=== PATIENT | female | born 1985 | race African-American/Black ===

== ENCOUNTER 2017-03-16 10:19 | Emergency (ER) | payer OTHER ==
[~2017-03-16] VITALS: Ht 154.9 cm; Wt 59.9 kg
[2017-03-16] MEDS ORDERED: [UNRECOGNIZED DRUG - OTHER] TD (10:29)
[2017-03-16] MEDS ORDERED: ZYRT10TA2 PO (10:29)
[2017-03-16] MEDS ORDERED: KETOROLAC 30 MG/ML VIAL (J1885) IV ONE (11:00)
[2017-03-16] MEDS ORDERED: ONDANSETRON 4MG/2ML VIAL (J2405) IV ONE (11:00)
[2017-03-16] MEDS ORDERED: NS 1,000 ML IV ONE (11:00)
[2017-03-16 11:39] LABS: BASO % 0.3 % (0.0-1.0); EOS # 0.2 K/mm3 (0.0-0.50); EOS % 2.5 % (0.0-3.0); LARGE UNSTAINED CELL # 0.1 K/mm3 (0.0-0.4); LYMPH # 1.5 K/mm3 (1.5-4.5); LYMPH % 19.6 % (24.0-44.0); MEAN CORPUSCULAR HEMOGLOBIN 24.8 pg (27.0-33.0); MEAN CORPUSCULAR HGB CONC 31.5 g/dl (32.0-36.5); MEAN CORPUSCULAR VOLUME 78.6 fl (80.0-96.0); MONO # 0.2 K/mm3 (0.0-0.8); MONO % 2.8 % (0.0-5.0); NEUTROPHILS # 5.8 K/mm3 (1.8-7.7); NEUTROPHILS % 73.8 % (36.0-66.0); PLATELET COUNT, AUTOMATED 401 k/mm3 (150-450); RED CELL DISTRIBUTION WIDTH 14.6 % (11.5-14.5); WHITE BLOOD COUNT 7.8 K/mm3 (4.0-10.0)
[2017-03-16 12:05] LABS: CONTROL LINE HCG INT CTR LINE PRESENT
[2017-03-16 12:13] LABS: ALBUMIN 3.4 GM/DL (3.2-5.2); ALBUMIN/GLOBULIN RATIO 0.77 (1.00-1.93); ALKALINE PHOSPHATASE 75 U/L (45-117); ALT/SGPT 13 U/L (12-78); ANION GAP 6 MEQ/L (8-16); AST/SGOT 10 U/L (15-37); BILIRUBIN,DIRECT < 0.1 MG/DL (0.0-0.2); BILIRUBIN,TOTAL 0.3 MG/DL (0.2-1.0); BLOOD UREA NITROGEN 6 MG/DL (7-18); CALCIUM LEVEL 8.9 MG/DL (8.5-10.1); CARBON DIOXIDE LEVEL 27 MEQ/L (21-32); CHLORIDE LEVEL 105 MEQ/L (98-107); CREATININE FOR GFR 0.67 MG/DL (0.55-1.02); GLOMERULAR FILTRATION RATE > 60.0 (>60); GLUCOSE, FASTING 89 MG/DL (70-105); POTASSIUM SERUM 3.5 MEQ/L (3.5-5.1); SODIUM LEVEL 138 MEQ/L (136-145); TOTAL PROTEIN 7.8 GM/DL (6.4-8.2)
--- NOTE | 2017-03-16 13:39 | REP ---
CT ABDOMEN AND PELVIS WITHOUT CONTRAST: CT abdomen and pelvis performed without IV contrast. Sagittal and coronal reconstruction images are performed. In the visualized lung bases, there is an ill-defined, somewhat nodular opacity in the right middle lobe measuring 4 mm in diameter. This is of doubtful significance. Liver, gallbladder, spleen, adrenals, pancreas and kidneys are grossly unremarkable. N renal or ureteral calculus is seen and I see no evidence of hydroureteronephrosis. There is no evidence of abdominal aortic aneurysm. There is no adenopathy. There is no free air or free fluid. The uterus appears enlarged with a lobular contour suggesting fibroid changes. In the right adnexal region, superiorly is an oval structure measuring approximately 5.7 x 3.5 cm. This may represent an enlarged ovary but underlying adnexal mass cannot be excluded. The urinary bladder is grossly unremarkable. IMPRESSION: There is a 4 mm ill-defined nodular opacity in the right middle lobe, which is of uncertain significance. Recommend followup CT in six months. No evidence of renal or ureteral calculus and no hydroureteronephrosis. No evidence of appendicitis. Enlarged uterus with somewhat lobulated contour suggesting fibroid changes. Right adnexal structure measuring 5.7 x 3.5 cm may represent an enlarged ovary but underlying right adnexal mass cannot be excluded. Recommend pelvic ultrasound to further evaluate. Signed by Edward Degroot MD 03/18/2017 06:57 P
[2017-03-16] MEDS ORDERED: IBUP80TA PO (14:49)
[2017-03-16] MEDS ORDERED: ULTR50TA PO (14:49)
--- NOTE | 2017-03-16 14:58 | REP ---
PELVIC ULTRASOUND: Real-time sonographic evaluation of the pelvis is performed utilizing transabdominal and endovaginal technique. The bladder measures 8.0 x 5.1 x 4.7 cm. The uterus measures 14.4 x 5.6 x 8.9 cm. It is enlarged and heterogeneous with multiple fibroids. Two large pedunculated fibroids in the right fundal region are seen, measuring 3.9 x 3.0 x 2.8 cm and 2.1 x 2.0 x 2.3 cm. Another large fibroid is seen posteriorly in the uterine body measuring 5.5 x 4.1 x 4.2 cm. The endometrium measures 5 mm with no endometrial fluid collection. The ovaries appear normal in size and echotexture, right ovary measuring 2.8 x 1.6 x 2.2 cm and the left ovary 1.7 x 1.4 x 2.0 cm. There is no adnexal mass or free fluid. IMPRESSION: Enlarged fibroid uterus. Normal ovaries with no evidence of mass or torsion. The suspected right adnexal mass on today's CT scan represents a uterine fibroid. Signed by Edward Degroot MD 03/18/2017 06:58 P
[2017-03-16 15:02] VITALS: BP 125/71
--- NOTE | 2017-03-21 15:13 | ED PDOC ---
Post-Departure Follow-Up lisbet celaya faxed formal report of ct abd/p for fu Calli Hardy MD Mar 21, 2017 15:13
== END 2017-03-16 15:18 | disposition home or self-care (01) ==
LOC: M ED 11:07
DX: D25.9 Leiomyoma of uterus, unspecified (principal); Z87.442 Personal history of urinary calculi; Z79.899 Other long term (current) drug therapy
CPT/HCPCS: 74176; 76856; 80048; 80076; 81001; 81025; 83690; 84703; 85025; 87086; 87210; 87491; 87591; 93976; 96374; 96375; 99284; J1885; J2405

== ENCOUNTER 2017-09-17 10:21 | Emergency (ER) | payer OTHER ==
[~2017-09-17] VITALS: Ht 152.4 cm; Wt 59.5 kg
[~2017-09-17 10:21] MED LIST: IBUP80TA PO; ULTR50TA8 PO; ZYRT10TA2 PO; [UNRECOGNIZED DRUG - OTHER] TD
[2017-09-17 10:22] VITALS: BP 140/88
[2017-09-17] MEDS ORDERED: IBUP200C10 PO (10:36)
[2017-09-17] MEDS ORDERED: KEFL500C17 PO (11:10)
[2017-09-17] MEDS ORDERED: NORCOTAB PO ×2 (11:10→11:17)
== END 2017-09-17 11:21 | disposition home or self-care (01) ==
LOC: M ED 10:21
DX: L03.114 Cellulitis of left upper limb (principal); J45.909 Unspecified asthma, uncomplicated; Z79.899 Other long term (current) drug therapy; Z79.3 Long term (current) use of hormonal contraceptives; Z88.8 Allergy status to other drugs, medicaments and biological substances

== ENCOUNTER 2018-03-01 17:59 | Emergency (ER) | payer OTHER | END 2018-03-01 19:23 | disposition home or self-care (01) | LOC: M ED 17:59 | DX: J01.90 Acute sinusitis, unspecified (principal); F32.9 Major depressive disorder, single episode, unspecified; Z79.3 Long term (current) use of hormonal contraceptives; Z79.899 Other long term (current) drug therapy; Z88.8 Allergy status to other drugs, medicaments and biological substances | CPT/HCPCS: 71046 ==

== ENCOUNTER 2019-01-06 07:51 | Emergency (ER) | payer OTHER ==
[~2019-01-06] VITALS: Ht 152.4 cm; Wt 61.4 kg
[~2019-01-06 07:51] MED LIST changes: +AUGM875T28 PO; +HYDR-3715 PO; +IBUP200C25 PO; +KEFL500C17 PO; +ZYRT10CA5 PO; -ZYRT10TA2 PO
[2019-01-06] MEDS ORDERED: CENTCHW4 PO (07:55)
[2019-01-06] MEDS ORDERED: NS 1,000 ML IV ONE (08:30)
[2019-01-06] MEDS ORDERED: KETOROLAC 30 MG/ML VIAL (J1885) IV ONE (08:30)
[2019-01-06 08:56] LABS: BASO % 0.5 % (0.0-1.0); EOS # 0.1 10^3/uL (0.0-0.50); EOS % 1.9 % (0.0-3.0); HEMATOCRIT 42.3 % (36.0-47.0); HEMOGLOBIN 13.5 g/dl (12.0-15.5); LYMPH # 1.9 10^3/uL (1.5-4.5); LYMPH % 29.8 % (24.0-44.0); MEAN CORPUSCULAR HEMOGLOBIN 24.5 pg (27.0-33.0); MEAN CORPUSCULAR HGB CONC 31.9 g/dl (32.0-36.5); MEAN CORPUSCULAR VOLUME 76.9 fl (80.0-96.0); MONO # 0.3 10^3/uL (0.0-0.8); MONO % 5.4 % (0.0-5.0); NEUTROPHILS % 62.2 % (36.0-66.0); PLATELET COUNT, AUTOMATED 414 10^3/uL (150-450); WHITE BLOOD COUNT 6.4 10^3/uL (4.0-10.0)
[2019-01-06 09:25] LABS: HCG, SERUM QUALITATIVE NEGATIVE (NEGATIVE)
[2019-01-06 09:26] LABS: BLOOD UREA NITROGEN 11 MG/DL (7-18); CALCIUM LEVEL 9.2 MG/DL (8.5-10.1); CARBON DIOXIDE LEVEL 27 MEQ/L (21-32); CHLORIDE LEVEL 104 MEQ/L (98-107); CREATININE FOR GFR 0.79 MG/DL (0.55-1.30); GLOMERULAR FILTRATION RATE > 60.0 (>60); GLUCOSE, FASTING 86 MG/DL (70-100); POTASSIUM SERUM 4.2 MEQ/L (3.5-5.1); SODIUM LEVEL 138 MEQ/L (136-145)
--- NOTE | 2019-01-06 10:12 | REP ---
PELVIC SONOGRAPHY: HISTORY: Pelvic discomfort. History of ovarian cysts. FINDINGS: Transabdominal and transvaginal scanning are performed. Uterine dimensions are quite enlarged at 12.0 x 6.2 x 10.0 cm. Endometrial echo is 0.5 cm thick. Uterine texture is heterogeneous with numerous fibroids. Among the largest fibroids is a pedunculated subserosal fibroid on the right side measuring 8.2 x 4.6 x 6.5 cm. At the fundus there is a 3.7 x 2.5 x 3.9 cm fibroid and on the right posteriorly there is a 4.2 x 4.0 x 3.6 cm intramural fibroid. A trace of fluid is seen in the cul-de-sac consistent with physiologic fluid. Normal ovaries are seen. Right ovary measures 3.5 x 1.9 x 2.7 cm. Left ovarian dimensions are 3.1 x 1.9 x 2.8 cm. Doppler flow is seen in both ovaries. Resistive indices are 0.44 on the left and 0.58 on the right. IMPRESSION: Moderate to marked uterine enlargement with numerous fibroids ranging up to 8.2 cm in diameter. Normal ovaries bilaterally. Electronically Signed by Rashard Ponce MD 01/06/2019 01:59 P
[2019-01-06 10:22] VITALS: BP 155/90
[2019-01-06 10:45] LABS: CHLAMYDIA DNA AMPLIFICATION NEGATIVE (NEGATIVE); GC DNA AMPLIFICATION NEGATIVE (NEGATIVE)
== END 2019-01-06 10:25 | disposition home or self-care (01) ==
LOC: M ED 07:51
DX: D25.9 Leiomyoma of uterus, unspecified (principal); J45.909 Unspecified asthma, uncomplicated; F32.9 Major depressive disorder, single episode, unspecified; Z79.899 Other long term (current) drug therapy; Z88.8 Allergy status to other drugs, medicaments and biological substances
CPT/HCPCS: 76830; 76856; 80048; 81001; 84703; 85025; 87210; 87491; 87591; 93976; 96361; 96374; 99284; J1885

== ENCOUNTER 2019-01-10 20:06 | Emergency (ER) | payer OTHER ==
[~2019-01-10] VITALS: Ht 152.4 cm; Wt 61.4 kg
[~2019-01-10 20:06] MED LIST changes: +CENTCHW4 PO
[2019-01-10 23:14] LABS: BASO % 0.2 % (0.0-1.0); EOS # 0.1 10^3/uL (0.0-0.50); EOS % 1.1 % (0.0-3.0); HEMATOCRIT 38.5 % (36.0-47.0); HEMOGLOBIN 12.5 g/dl (12.0-15.5); LYMPH # 1.9 10^3/uL (1.5-4.5); LYMPH % 21.7 % (24.0-44.0); MEAN CORPUSCULAR HEMOGLOBIN 24.2 pg (27.0-33.0); MEAN CORPUSCULAR HGB CONC 32.5 g/dl (32.0-36.5); MEAN CORPUSCULAR VOLUME 74.6 fl (80.0-96.0); MONO # 0.8 10^3/uL (0.0-0.8); MONO % 9.3 % (0.0-5.0); NEUTROPHILS # 5.9 10^3/uL (1.8-7.7); NEUTROPHILS % 67.4 % (36.0-66.0); PLATELET COUNT, AUTOMATED 377 10^3/uL (150-450); RED BLOOD COUNT 5.16 10^6/uL (4.00-5.40); WHITE BLOOD COUNT 8.7 10^3/uL (4.0-10.0)
[2019-01-10] MEDS ORDERED: NORCO, ANEXSIA 5/325MG TABLET (HYDROcodone/ACETAMINOPHEN) PO ONE (23:15)
[2019-01-10 23:29] LABS: BLOOD UREA NITROGEN 12 MG/DL (7-18); CALCIUM LEVEL 8.8 MG/DL (8.5-10.1); CARBON DIOXIDE LEVEL 24 MEQ/L (21-32); CHLORIDE LEVEL 106 MEQ/L (98-107); CREATININE FOR GFR 0.65 MG/DL (0.55-1.30); GLOMERULAR FILTRATION RATE > 60.0 (>60); GLUCOSE, FASTING 107 MG/DL (70-100); POTASSIUM SERUM 3.6 MEQ/L (3.5-5.1); SODIUM LEVEL 139 MEQ/L (136-145)
[2019-01-11] MEDS ORDERED: NORCO 5/325MG TABLET (BULK FOR ED) PO ONE (01:30)
[2019-01-11 01:36] VITALS: BP 121/76
== END 2019-01-11 01:38 | disposition home or self-care (01) ==
LOC: M ED 20:06
DX: D25.1 Intramural leiomyoma of uterus (principal); D25.2 Subserosal leiomyoma of uterus; J45.909 Unspecified asthma, uncomplicated; Z79.3 Long term (current) use of hormonal contraceptives; Z88.8 Allergy status to other drugs, medicaments and biological substances

== ENCOUNTER 2019-04-05 05:44 | Inpatient (IN) | payer OTHER ==
[2019-04-05] VITALS (9 sets, daily range): BP systolic 115–143; BP diastolic 64–78
[~2019-04-05] VITALS: Ht 154.9 cm; Wt 59.9 kg
[~2019-04-05 05:44] MED LIST changes: +ADV250INH INH; +DEPO150I IM; +PROAAER10 INH; +TRAM50TA2 PO
[2019-04-05] MEDS ORDERED: LIDOCAINE 1% MDV 20ML VIAL SQ PRN (06:00)
[2019-04-05] MEDS: LR 1,000 ML IV SCH ×2 (06:00→17:06)
[2019-04-05 06:19] LABS: HEMATOCRIT 39.6 % (36.0-47.0); HEMOGLOBIN 12.9 g/dl (12.0-15.5); MEAN CORPUSCULAR HEMOGLOBIN 25.1 pg (27.0-33.0); MEAN CORPUSCULAR HGB CONC 32.6 g/dl (32.0-36.5); PLATELET COUNT, AUTOMATED 396 10^3/uL (150-450); RED BLOOD COUNT 5.14 10^6/uL (4.00-5.40); WHITE BLOOD COUNT 7.1 10^3/uL (4.0-10.0)
[2019-04-05 06:42] LABS: BLOOD UREA NITROGEN 9 MG/DL (7-18); CALCIUM LEVEL 8.9 MG/DL (8.5-10.1); CARBON DIOXIDE LEVEL 25 MEQ/L (21-32); CHLORIDE LEVEL 109 MEQ/L (98-107); CREATININE FOR GFR 0.91 MG/DL (0.55-1.30); GLOMERULAR FILTRATION RATE > 60.0 (>60); GLUCOSE, FASTING 99 MG/DL (70-100); SODIUM LEVEL 141 MEQ/L (136-145)
[2019-04-05 06:44] LABS: HCG, SERUM QUALITATIVE NEGATIVE (NEGATIVE)
[2019-04-05] MEDS ORDERED: LR 1,000 ML IV ONE (07:00)
[2019-04-05] MEDS ORDERED: IODINE STRONG SOLN 15 ML BTL As Ordered ONE (07:14)
[2019-04-05] MEDS ORDERED: LIDOCAINE W/EPINEPHRINE 1% 20ML VIAL As Ordered ONE (07:14)
[2019-04-05] MEDS ORDERED: VASOPRESSIN INJ 20 UNITS/ML VIAL As Ordered ONE (07:20)
[2019-04-05] MEDS ORDERED: ONDANSETRON 4MG/2ML VIAL (J2405) As Ordered ONE (08:09)
[2019-04-05] MEDS ORDERED: LIDOCAINE 2% INJ 100 MG/5 ML SDV (FOR ANES.) As Ordered ONE (08:09)
[2019-04-05] MEDS ORDERED: KETOROLAC 60 MG/2 ML VIAL (J1885) As Ordered ONE (08:09)
[2019-04-05] MEDS ORDERED: fentaNYL 250 MCG/5 ML INJECTION (J3010) As Ordered ONE (08:09)
[2019-04-05] MEDS ORDERED: GLYCOPYRROLATE INJ 0.2 MG/ML 2 ML VIAL As Ordered ONE (08:09)
[2019-04-05] MEDS ORDERED: PROPOFOL 200 MG/20 ML VIAL As Ordered ONE (08:09)
[2019-04-05] MEDS ORDERED: dexameTHASONE 4 MG/ML 1ML VIAL (J1100) As Ordered ONE (08:09)
[2019-04-05] MEDS ORDERED: ACETAMINOPHEN 1000MG 100ML IV BTL (OFIRMEV) (J0131 PER 10MG) As Ordered ONE (08:09)
[2019-04-05] MEDS ORDERED: MIDAZOLAM INJ 2 MG/2 ML VIAL (J2250) As Ordered ONE (08:09)
[2019-04-05] MEDS ORDERED: ROCURONIUM BROMIDE 50 MG/5 ML VIAL As Ordered ONE (08:09)
[2019-04-05] MEDS ORDERED: SUGAMMADEX SODIUM 500 MG/5 ML VIAL (BRIDION) As Ordered ONE (08:09)
[2019-04-05] MEDS ORDERED: HYDROmorphone HCL 2 MG/ML 1ML VIAL (J1170) As Ordered ONE (08:09)
[2019-04-05] MEDS ORDERED: PHENYLephrine HCL 500 MCG/5 ML (100MCG/ML) SYRINGE (J2370) As Ordered ONE (08:12)
[2019-04-05] MEDS ORDERED: PERCOCET 5MG/325MG TAB PO PRN ×3 (09:45→10:30)
[2019-04-05] MEDS ORDERED: PROMETHAZINE INJ 25 MG/ML VIAL (J2550) IV PRN (09:45)
[2019-04-05] MEDS ORDERED: MORPHINE 4 MG/ML 1ML VIAL/SYRINGE (J2270) IV PRN (09:45)
[2019-04-05] MEDS ORDERED: fentaNYL 100 MCG/2 ML INJECTION (J3010) As Ordered ONE (10:08)
[2019-04-05] MEDS: fentaNYL 100 MCG/2 ML INJECTION (J3010) IV PRN ×4 (10:10→10:25)
[2019-04-05] MEDS ORDERED: METOCLOPRAMIDE INJ 10MG/2ML VIAL (J2765) IV PRN (10:30)
[2019-04-05] MEDS ORDERED: LR 1,000 ML IV SCH (10:30)
[2019-04-05] MEDS ORDERED: HYDROMORPHONE HCL 0.5 MG/ 0.5 ML SYRINGE (J1170 PER 1) IV PRN (10:30)
[2019-04-05] MEDS ORDERED: ONDANSETRON 4MG/2ML VIAL (J2405) IV PRN (10:30)
[2019-04-05] MEDS: DOCUSATE SODIUM 100 MG CAP PO SCH ×2 (14:32→20:29)
[2019-04-05] MEDS: KETOROLAC 30 MG/ML VIAL (J1885) IV SCH ×2 (14:34→20:29)
[2019-04-06] VITALS: BP 111/62
[2019-04-06] MEDS: KETOROLAC 30 MG/ML VIAL (J1885) IV SCH ×3 (02:08→13:53)
[2019-04-06 04:00] VITALS: BP 115/60
[2019-04-06 07:49] LABS: HEMATOCRIT 36.1 % (36.0-47.0); HEMOGLOBIN 11.2 g/dl (12.0-15.5); MEAN CORPUSCULAR HEMOGLOBIN 25.7 pg (27.0-33.0); MEAN CORPUSCULAR VOLUME 82.8 fl (80.0-96.0); PLATELET COUNT, AUTOMATED 236 10^3/uL (150-450); RED BLOOD COUNT 4.36 10^6/uL (4.00-5.40); WHITE BLOOD COUNT 11.1 10^3/uL (4.0-10.0)
[2019-04-06 08:00] VITALS: BP 116/67
[2019-04-06 08:04] LABS: BLOOD UREA NITROGEN 8 MG/DL (7-18); CALCIUM LEVEL 8.7 MG/DL (8.5-10.1); CARBON DIOXIDE LEVEL 23 MEQ/L (21-32); CHLORIDE LEVEL 110 MEQ/L (98-107); CREATININE FOR GFR 0.76 MG/DL (0.55-1.30); GLOMERULAR FILTRATION RATE > 60.0 (>60); GLUCOSE, FASTING 86 MG/DL (70-100); POTASSIUM SERUM 3.7 MEQ/L (3.5-5.1); SODIUM LEVEL 142 MEQ/L (136-145)
--- NOTE | 2019-04-06 08:06 | IPNPDOC ---
Text Note Date of Service The patient was seen on 04/06/19. NOTE 34 yo G0 POD#1 s/p uncomplicated open abdominal myomectomy and LEEP yesterday for symptomatic fibroid uterus and cervical dysplasia. EBL from surgery 50ml. Patient currently recovering on the Peds floor. No acute events overnight. Alcira reports feeling well. She's still sore but improved from yesterday. She has been ambulating. Mcadams catheter removed this morning and we are awaiting DTV. She is tolerating a regular diet and denies any n/v, fevers/chills, SOB, chest pain, dysuria, or pain not controlled by PO pain medications. Vitals - VSS, afebrile, normotensive, nontachycardic General - AAOX3, sitting up in bed, NAD Abdomen - Soft, nondistended. Bandage removed and incision clean/dry/intact. Steri strips in place. Minimal tenderness to palpation. Extremities - No edema. UO - Excellent Labs: Pre op CBC: 7.1>12.9/39.6<396 --> CBC post op this AM 11.1>11.2/36.1<236 Pending post op BMP Ms. Alegre is doing well and is making an appropriate postoperative recovery. Will monitor for DTV today now that mcadams catheter out. Continue to encourage ambulation and IS use. Continue routine postoperative care. Anticipate dc home later today or tomorrow morning. Shailesh Fernandes DO VS,Robb, I+O VS, Robertbone, I+O Laboratory Tests 04/06/19 07:25 Red Blood Count 4.36, Mean Corpuscular Volume 82.8, Mean Corpuscular Hemoglobin 25.7 L, Mean Corpuscular Hemoglobin Concent 31.0 L, Red Cell Distribution Width 15.3 H Vital Signs Date Time Temp Pulse Resp B/P (MAP) Pulse Ox O2 Delivery O2 Flow Rate FiO2 04/06/19 08:00 98.5 79 18 116/67 (83) 99 I&O- Last 24 Hours up to 6 AM 04/06/19 06:00 Intake Total 4960 ml Output Total 3500 ml Balance 1460 ml SHAILESH FERNANDES DO Apr 06, 2019 08:06
[2019-04-06] MEDS: DOCUSATE SODIUM 100 MG CAP PO SCH (08:21)
--- NOTE | 2019-04-06 11:33 | RO ---
DATE OF PROCEDURE: 04/05/2019 PREOPERATIVE DIAGNOSES: Symptomatic fibroid uterus and cervical dysplasia. POSTOPERATIVE DIAGNOSES: Symptomatic fibroid uterus and cervical dysplasia. PROCEDURE: Open abdominal myomectomy and loop electrosurgical incision procedure. SURGEON: Dr. Shailesh Tobias. CLAY TRANSPORTER: Dr. Fabiano Urbano. ANESTHESIA: General. ANTIBIOTICS: 2grams Ancef FLUIDS: 1700 mL lactated Ringers (LR). URINE OUTPUT: 400 mL via Mcgovern catheter. ESTIMATED BLOOD LOSS: 50 mL. COMPLICATIONS: None. OPERATIVE FINDINGS: Upon entry into the abdomen, there was noted to be an 8 cm large pedunculated fibroid protruding from the right fundus of the uterus along with a 3 cm fibroid subserosal fibroid right next to it. Other fibroids were noted in the uterus but they were deeply within the uterus and small. The remainder of the abdomen was normal in appearance. INDICATIONS FOR PROCEDURE: The patient is 34-year-old G0 female with a known large fibroid uterus including a single pedunculated 8 cm fibroid in the pelvis that caused her pressure and bulk symptoms. She desired removal but also desired to retain her fertility so she opted for abdominal myomectomy. In addition, she was noted to have cervical dysplasia found on colposcopy with a biopsy finding of HSIL, so she was counseled for a loop electrosurgical excision procedure (LEEP) in the operating room (OR) at the same time. DESCRIPTION OF PROCEDURE: The risks, benefits, indications and alternatives of the procedures were reviewed with the patient and informed consent was obtained. The patient was taken to the operating room where general anesthesia was obtained without difficulty. The patient was then placed in a lithotomy position using Bill stirrups. An exam under anesthesia was then performed and was significant for a 12-week size uterus with a large fibroid protuberance, almost up to the umbilicus on exam. An abdominal and vaginal prep were then performed in the usual sterile fashion and a Mcgovern catheter was placed. A surgical time-out was then performed and patient's identity and plan for procedure verified with the operative team. A Pfannenstiel skin incision was then made with the scalpel and carried through to the underlying layer of fascia using Bovie electrocautery. The fascia was incised sharply in the midline and opened laterally with Dalton scissors. The superior aspect of the fascia was then grasped with Jeanna clamps and underlying rectus muscles were then dissected off bluntly and sharply with the Dalton scissors. The inferior aspect of the fascial incision was then grasped and the underlying rectus muscles, in a similar fashion, were dissected off with Dalton scissors and bluntly. The rectus muscles were then at the midline. The peritoneum was identified and grasped with hemostats. The peritoneum was then entered sharply with Metzenbaum scissors. The peritoneal incision was then extended horizontally, superiorly, and inferiorly via blunt dissection and sharply with Chesnee scissors. A Mobius self-containing retractor was then inserted into the abdomen for abdominal exposure and additional packing was then placed to separate the bowel from the operative field. Examination of the uterus revealed a large pedunculated fibroid approximately 8 cm in size in addition to an adjacent 3 cm subserosal fibroid. The uterus did have other fibroids deep within the myometrium to palpation but they appeared small and did not distort anatomy grossly. The uterus was then elevated to the level of the incision and the fallopian tubes and ovaries were noted to be normal bilaterally. The decision was made to proceed with abdominal myomectomy. The pedunculated fibroid was grasped with a single tooth tenaculum and vasopressin was injected along the base for assistance with hemostasis. The fibroid stalk was then incised with the Bovie electrocautery and with careful dissection, the fibroid was removed from the uterus. The uterine incision was then repaired with multiple [id number] sutures of 0 Vicryl. Excellent hemostasis was assured. The adjacent 3 cm subserosal fibroid was then incised and the fibroid was removed. Both fibroids were sent of the operative field. Hemostasis was controlled at the uterine incisions again with multiple [id number] sutures of 0 Vicryl. Ultimately, there was excellent hemostasis. The remainder of the uterus, as mentioned, had small fibroids that did not distort anatomy and were deep within the muscular layer and were left in place. The uterus was then again confirmed to be hemostatic and Selena was then placed at the uterine incision sites. The uterus was then turned back to the pelvis. The bowel packing was then removed and the Mobius self-containing retractor was then removed as well. The peritoneum was then closed with #3-0 Vicryl suture in a running fashion. The fascia was then closed with 0 Vicryl suture in a running fashion. The subcutaneous fat was then closed with #3-0 Vicryl suture in an running fashion. The skin was closed with #4-0 Monocryl suture in a subcuticular fashion. The incision was then dressed with Steri-Strips and a pressure dressing was applied. Attention was then turned to the patient's vagina for the loop electrosurgical excision procedure. A sterile Graves speculum was then placed into the vaginal and the cervix was visualized. Lugol solution was then copiously applied to the cervix and highlighted a lesion from the 2-o'clock position to the 4-o'clock position of the cervix. A paracervical block was then performed using approximately 5 mL of Lidocaine with epinephrine. The LEEP device was then set to 60-60 blend and activated. A loop electrocautery wire was passed across the external cervical os in a single pass and a specimen of ectocervix was obtained. This sample was sent to pathology for review. An additional pass with the loop electrocautery wire for an endocervical specimen was obtained and this specimen was also sent to pathology for review. Superficial electrocoagulation of the cervical stroma was then performed and excellent hemostasis was achieved. All instruments were then removed from the patient's vagina. A vaginal sweep confirmed no retained objects remained. At the completion of the case, the sponge, instrument and needle counts were correct times two. The patient tolerated the procedures well and was taken to the postanesthesia care unit (PACU) in stable condition. JOHN
[2019-04-06 12:00] VITALS: BP 121/69
[2019-04-06 16:00] VITALS: BP 131/75
[2019-04-06] MEDS ORDERED: PERCOCET PO (16:40)
[2019-04-06] MEDS ORDERED: IBUP80TA PO (16:40)
--- NOTE | 2019-04-06 16:46 | DS.PDOC ---
Discharge Summary General Date of Admission Apr 05, 2019 at 05:44 Date of Discharge Apr 05, 2019 Discharge Summary HOSPITAL COURSE: Ms. Alegre was admitted to [facility] on [id number] for a planned abdominal myomectomy and LEEP due to symptomatic uterine fibroids and cervical dysplasia. She underwent those procedures on the day of her admission and they were uncomplicated. Her postoperative course was uneventful. She requested discharge home on POD#1 and was meeting all criteria. She was ambulating, vo iding, tolerating a regular diet, and her pain was well controlled with PO pain medications. DISCHARGE MEDICATIONS: Please see below. ALLERGIES: Please see below. PHYSICAL EXAMINATION ON DISCHARGE: VITAL SIGNS: Please see below. GENERAL: AAOX3 ABDOMINAL EXAMINATION: Incision well appearing. Steri strips intact. Incision clean/dry/intact. Minimal tenderness to palpation. EXTREMITIES: No edema PSYCHIATRIC EXAMINATION: Affect appropriate LABORATORY DATA: Please see below. ACTIVITY: Pelvic rest for 6 weeks. No heavy lifting for 6 weeks. DIET: regular DISCHARGE PLAN: discharge home DISPOSITION: discharge home on 06Apr2019. DISCHARGE INSTRUCTIONS: 1. Pelvic rest for 6 weeks 2. No heavy lifting for 6 weeks. 3. No baths for 6 weeks. Showering is fine. ITEMS TO FOLLOWUP ON ON OUTPATIENT: 1. Incision check in 2 weeks. DISCHARGE CONDITION: Stable. TIME SPENT ON DISCHARGE: Greater than 20 minutes. Jose Tobias DO Vital Signs/I&Os Vital Signs Date Time Temp Pulse Resp B/P (MAP) Pulse Ox O2 Delivery O2 Flow Rate FiO2 04/06/19 16:00 97.3 72 17 131/75 (93) 99 I&O- Last 24 Hours up to 6 AM 04/06/19 06:00 Intake Total 4960 ml Output Total 3500 ml Balance 1460 ml Laboratory Data Labs 24H Laboratory Tests 2 04/06/19 07:25: Nucleated Red Blood Cells % (auto) 0.0, Anion Gap 9, Glomerular Filtration Rate > 60.0, Blood Urea Nitrogen 8, Creatinine 0.76, Sodium Level 142, Potassium Level 3.7, Chloride Level 110H, Carbon Dioxide Level 23, Calcium Level 8.7 CBC/BMP Laboratory Tests 04/06/19 07:25 Red Blood Count 4.36, Mean Corpuscular Volume 82.8, Mean Corpuscular Hemoglobin 25.7 L, Mean Corpuscular Hemoglobin Concent 31.0 L, Red Cell Distribution Width 15.3 H, Calcium Level 8.7 Discharge Medications Scheduled Ibuprofen (Ibuprofen) 800 Mg Tablet, 800 MG PO Q8H Medroxyprogesterone Acetate (Depo-Provera) 150 Mg/1 Ml Vial, 150 MG IM Q3M, (Reported) Multivit-Min/Iron/Folic/Vit K1 (Centrum Chewables Adults Tab) 1 Chw Chw, 2 TAB PO DAILY, (Reported) Salmeterol/Fluticasone (Advair 250-50 Diskus) 1 Each Blst.w.dev, 1 PUFF INH 2XW, (Reported) Scheduled PRN Albuterol Sulfate (Proair Hfa) 8.5 Gm Hfa.aer.ad, 2 PUFF INH Q4HP PRN for SHORTNESS OF BREATH, (Reported) Oxycodone/Acetaminophen (Oxycodone-Acetaminophen 5-325) 1 Each Tablet, 1 TAB PO Q4HP PRN for MODERATE PAIN (PS 5-7) Tramadol HCl (Tramadol HCl) 50 Mg Tablet, 50 MG PO Q6HP PRN for PAIN, (Reported) Allergies Coded Allergies: sertraline (Verified Allergy, Unknown, headache vomiting, 03/29/19) JOSE TOBIAS DO Apr 06, 2019 16:46
[2019-04-10] MEDS ORDERED: IBUPROFEN 800 MG TAB PO SCH (16:00)
== END 2019-04-06 18:05 | disposition home or self-care (01) | DRG 743 ==
LOC: M OR 05:44 → EDSTATUS 07:30 → M PED 11:30
PROVIDERS: ADMIT Obstetrics & Gynecology; ATTEND Obstetrics & Gynecology
PROC: 0UB90ZZ Excision of Uterus, Open Approach (ICD-10-PCS; principal; 2019-04-05 07:30)
PROC: 0U5 Female Reproductive System, Destruction (ICD-10-PCS; 2019-04-05 07:30)
DX: D25.9 Leiomyoma of uterus, unspecified (principal); N87.9 Dysplasia of cervix uteri, unspecified